=== PATIENT | male | born 1985 | race Caucasian/White ===

== ENCOUNTER 2016-06-28 20:16 | Emergency (ER) | payer OTHER ==
--- NOTE | 2016-06-28 22:09 | DIAGNOSTIC IMAGING REPORT ---
PROCEDURE: XR CHEST 2 VIEW INDICATION: CHEST PAIN, initial encounter TECHNIQUE: PA and lateral view. COMPARISON: None. FINDINGS: Lungs are clear. Cardiovascular structures are normal. Bony thorax is unremarkable. IMPRESSION: 1. Negative chest.
--- NOTE | 2016-06-29 | DIAGNOSTIC IMAGING REPORT ---
PROCEDURE: CTA THORAX WITH CONTRAST INDICATION: CP, SOB, H/O PE TECHNIQUE: 95 ml of Isovue 370 was injected intravenously and axial images were obtained of the entire thorax with 3D sagittal and coronal MIP reconstructions. COMPARISON: Chest x-ray 06/28/2016 FINDINGS: No evidence of pulmonary emboli. No aortic dissection or aneurysm. No adenopathy or effusion. Lungs are clear. Heart size is normal. Visualized abdomen are unremarkable. No suspicious osseous lesions. IMPRESSION: 1. No evidence of pulmonary emboli 2. Results discussed with Dr. Clark
--- NOTE | 2016-06-29 00:15 | ED CLINICAL REPORT ---
Clinical Report - Physicians/Mid Levels [facility] [address] [place] [address] 06/28/2016 20:17 Patient: ROCKY WEINBERG Time Seen: 20:55. Arrived- By private vehicle. Historian- patient. HISTORY OF PRESENT ILLNESS Chief Complaint: CHEST PAIN and DISCOMFORT. At its maximum, severity described as moderate. When seen in the E.D., severity described as moderate. This started about 3 weeks ago and is still present. It is described as sharp and "pain" and it is described as located in the left chest area. No nausea, vomiting or diaphoresis. He has had difficulty breathing (Hurts to take a deep breath.). Similar symptoms previously: None. Recent medical care: Not recently seen/assessed. REVIEW OF SYSTEMS No fever, chills, cough, pedal edema or calf pain. No fainting episodes, headache, sore throat, blurred vision or abdominal pain. No black stools, difficulty with urination, skin rash, enlarged lymph nodes or joint pain. No bloody stools. All systems otherwise negative, except as recorded above. PAST HISTORY Problems: Pancreatitis. Diabetes Mellitus. Anxiety Reaction. DVT's x 2. Additional Surgeries: Pilonidal Cyst. Shoulder Surgery. Medications: Coumadin Oral (stopped three weeks ago). Allergies: Penicillins. Definite Moderate(hives). SOCIAL HISTORY Former smoker, end date 2006. History of drug use: marijuana. No alcohol use. ADDITIONAL NOTES The nursing notes have been reviewed. PHYSICAL EXAM Vital Signs: 06/28/2016 20:21 BP: 133/87. HR: 84. RR: 22. O2 saturation: 97%. Temp: 99.2 F. Pain level now: 5/10. Have been reviewed. Appearance: Alert. Oriented X3. Patient in mild distress. Distress appears due to anxiety but not due to respiratory difficulty. Eyes: Pupils equal, round and reactive to light. Eyes normal inspection. ENT: Nose normal. Neck: Normal inspection. CVS: Normal heart rate and rhythm. Heart sounds normal. Pulses normal. Respiratory: No respiratory distress. Breath sounds normal. Abdomen: Soft and nontender. Back: Normal external inspection. No CVA tenderness. Skin: Skin warm and dry. Normal skin color. No rash. Normal skin turgor. Extremities: Extremities exhibit normal ROM. No lower extremity edema. Neuro: Oriented X 3. No motor deficit. No sensory deficit. LABS, X-RAYS, AND EKG EKG: EKG time: (2023). No acute ischemia. Normal sinus rhythm. Rate: 73. Normal P waves. Normal SHANNAN. RBBB. Normal axis. Normal ST and T waves, QT and QTc. Prior EKG unavailable. The study has been interpreted contemporaneously by me. The study has been independently viewed by me. The EKG appears to be a good tracing. I agree with and confirm the computer reading of the EKG. Rhythm Strip #1: Time: (2020). Rate= 71. Normal sinus rhythm. Regular rhythm. Narrow QRS complexes. No ectopy. Conduction normal. Normal ST segments and T waves. The study was interpreted by me. Chest X-ray: No acute disease. Normal lung markings present. Normal heart size. Mediastinum normal. Great vessels normal. Soft tissues normal. No infiltrate. No fracture. No bony lesion present. Views: PA and lateral. Technique: good. The X-rays were independently viewed by me, interpreted by the radiologist and contemporaneously by me and discussed with the radiologist. Prior films were not available for comparison. Chest CT: Lungs normal. Great vessels normal. Mediastinum normal. No fractures noted. Chest CT performed with contrast. The study was independently viewed by me, interpreted by the radiologist and contemporaneously by me and discussed with the radiologist. Prior studies were not available for comparison. Laboratory Tests: CBC w Diff: (PRIMITIVO: 06/28/2016 20:40) ( MsgRcvd 06/28/2016 21:32) Final results Test Result Flag Units (Reference) WHITE BLOOD COUNT 9.8 K/uL (4.5-11.5) RED BLOOD COUNT 5.58 M/uL (4.50-5.90) HEMOGLOBIN 16.0 gm/dL (13.5-17.5) HEMATOCRIT 47.5 % (41.0-53.0) MEAN CELL VOLUME 85 fL (80-100) MEAN CORPUSCULAR HGB 29 pg (26-34) MEAN CORPUSCULAR HGB CONC 34 g/dL (31-37) RED CELL DISTRIBUTION WIDTH 13.5 % (11.6-14.8) PLATELET COUNT 310 K/uL (150-400) NEUTROPHIL % 61.1 % (50-75) LYMPH % 28.5 % (25-40) MONO % 9.0 % (3-14) EOSINOPHIL % 0.9 % (0-4) BASOPHIL % 0.5 % (0-2) [id number]: (PRIMITIVO: 06/28/2016 20:40) ( MsgRcvd 06/28/2016 21:24) Final results Test Result Flag Units (Reference) D-DIMER QUANTITATIVE 0.27 ug/mLFEU (0.27-0.52) The primary value of this quantitative assay relates toits negative predictive value (i.e. exclusion) of pulmonaryembolism/deep vein thrombosis/DIC.Elevated levels of d-dimer may also occur with:, age, cancer, inflammation, liver disease,post-op, infection, hematoma, coronary disease, peripheralarteriopathy, bleeding disorders and thrombolytic treatment.Results should be correlated with other clinical andradiological data.Testing Methodology: Latex Immunoassay CHEM 13 PANEL: (PRIMITIVO: 06/28/2016 20:40) ( NygRcvd 06/28/2016 22:05) Final results Test Result Flag Units (Reference) GLUCOSE 92 mg/dL (70-110) BUN 15 mg/dL (7-18) CREATININE 1.1 mg/dL (0.6-1.3) Estimated GFR >60 mL/min Estimated GFR- >60 mL/min Note: Persistent reduction over 3 months in eGFR<60 mL/min/1.73 m2 defines CKD. Patients with eGFR values>=60 mL/min/1.73 m2 may also have CKD if evidence ofpersistent proteinuria. Additional information may be foundat [email or web address].org. SODIUM 139 mmol/L (136-145) POTASSIUM 3.5 mmol/L (3.5-5.1) CHLORIDE 104 mmol/L (98-107) CARBON DIOXIDE 23 mmol/L (21-32) CALCIUM 8.9 mg/dL (8.5-10.1) TOTAL PROTEIN 7.8 g/dL (6.4-8.2) ALBUMIN 4.1 g/dL (3.3-5.0) BILIRUBIN, TOTAL 0.6 mg/dL (0.0-1.0) ALKALINE PHOSPHATASE 47 U/L (46-116) AST (SGOT) 32 U/L (15-37) ALT (SGPT) 50 U/L (12-78) CPK 518 H U/L (24-260) MAGNESIUM 2.4 mg/dL (1.8-2.4) CK-MB 1.4 ng/mL (0.5-3.2) %CKMB 0.3 % (0.0-4.0) TROPONIN I <0.05 L ng/mL (0.00-1.5) TROPONIN REFERENCE RANGE:<0.1 NEGATIVE0.1-1.5 INDETERMINANT>1.5 POSITIVE . Pulse Oximetry: 06/28/2016 20:21 O2 saturation: 97%. (FIO2 - room air). Interpretation: normal. PROGRESS AND PROCEDURES Course of Care: Pt was given IV Dilaudid, Toradol, Zofran, and Ativan for symptomatic relief. He was worked up with labs, CXR, EKG, and CTA, with unremarkable results. No emergent condition was identified. Patient counseled in person regarding the patient's stable condition, test results, diagnosis and need for follow-up. Concerns were addressed. Old medical records reviewed. Disposition: Discharged. Condition: stable and improved. CLINICAL IMPRESSION Chest pain, with painful respirations. INSTRUCTIONS (All of your tests looked very good. There is no sign of any emergent or serious condition causing your pain. No evidence of a heart attack, blood clot, aneurysm, infection, tumor or pneumothorax. Your pain is most likely caused by spasm of the rows of muscle between your ribs, causing inflammation of the muscle connections and anxiety.). Warnings: GENERAL WARNINGS: Return or contact your physician immediately if your condition worsens or changes unexpectedly, if not improving as expected, or if other problems arise. Your Current Medications: CONTINUE TAKING THE FOLLOWING MEDICATIONS: Coumadin Oral : stopped three weeks ago. Prescription Medications: Hydrocodone/APAP 5mg / 325mg: take 1-2 orally every 6 hours as needed for pain. Dispense fifteen (15). No refill. Follow-up: Follow up with your doctor. Call for the next available appointment. Reason for referral: Establish care and discuss further treatment of the residual blood clot in your leg. Understanding of the discharge instructions verbalized by patient and family. (Electronically signed by Bebe Clark MD 06/30/2016 2:11)
--- NOTE | 2016-06-29 00:16 | ED ORDER SUMMARY ---
..... Patient: ROCKY WEINBERG OrderSheet [facility] VisitID: [id number] [place] [address] 31y, M Registration Date/Time: 06/28/2016 ORDER SHEET Weight: 107.5 kg (stated) Allergies: Penicillins GENERAL ORDERS: Rehab Aid (Continuous) (Chest Pain) (20:37 06/28/2016 JRomandurga R.N. verbal order read back to Terry MG) (20:39 JRomanelli R.N.) Oxygen (2 L/min) (NC) (20:38 06/28/2016 JRomanelli R.N. verbal order read back to Terry MG) (20:39 JRomanelli R.N.) Pulse oximeter (20:38 06/28/2016 JRomanelli R.N. verbal order read back to Terry MG) (20:39 JRomanelli R.N.) EKG - ER Stat (20:38 06/28/2016 JRomanelli R.N. verbal order read back to Terry MG) (20:39 JRomanelli R.N.) Cardiac Panel Stat (20:40 06/28/2016 JRomanelli R.N. verbal order read back to Terry MG) (Ack 20:41 CHagelizabeth ER Labor Relations Specialist) (21:27 JRomanelli R.N.) D-Dimer Urgent (20:41 06/28/2016 JRomanelli R.N. verbal order read back to Terry MG) (Ack 20:41 CHagelizabeth ER Labor Relations Specialist) (21:27 JRomanelli R.N.) UA-Culture if indicated Urgent (20:42 06/28/2016 JRomanelli R.N. verbal order read back to Terry MG) (Ack 20:43 CHagelizabeth ER Labor Relations Specialist) (23:58 JQuivey R.N.) Chest 2V Urgent (21:24 06/28/2016 Norm MG) (Ack 21:26 CHagerty ER Labor Relations Specialist) (21:43 CHagerty ER Labor Relations Specialist) CTA Thorax w Cont (No) (N/A) Urgent (22:48 06/28/2016 Norm MG) (Ack 22:52 CHagerty ER Labor Relations Specialist) (23:24 RFay) MEDICATION ORDERS: IV FLUIDS: IV Saline Lock (20:38 06/28/2016 Horacio R.N. verbal order read back to Terry MG) (20:39 Jayelli R.N.) Dilaudid IV 1 mg (HIGH ALERT MEDICATION, NOW) (21:25 06/28/2016 Norm MG) (21:46 omanelli R.N.) Toradol IV 30 mg (NOW) (21:06/28/2016 Norm MG) (21:47 omandurga R.N.) Ativan IV 1 mg (HIGH ALERT MEDICATION, NOW) (21:06/28/2016 Norm MG) (21:49 Horacio R.N.) Zofran IV 4 mg (NOW) (21:06/28/2016 Norm MG) (21:48 omandurga R.N.) Zofran IV 4 mg (NOW) (23:26 06/28/2016 Norm MG) (Ack 23:45 JQuivey R.N.) (23:52 JQuivey R.N.) Morphine IV 10 mg (HIGH ALERT MEDICATION, NOW) (00:26 06/29/2016 Norm MG) (Ack 0:29 JQuivey R.N.) (0:36 JQuivey R.N.) ORDER SHEET NOTES: [Electronically signed by Shaan Dial R.N. (01:03 06/29/2016)] [Electronically signed by Bebe Clark MD (02:11 06/30/2016)] [Electronically locked/signed by Shaan Dial R.N. (01:03 06/29/2016)]
--- NOTE | 2016-06-29 00:16 | ED ORDER SUMMARY ---
..... Patient: ROCKY WEINBERG OrderSheet [facility] VisitID: [id number] [place] [address] 31y, M Registration Date/Time: 06/28/2016 ORDER SHEET Weight: 107.5 kg (stated) Allergies: Penicillins GENERAL ORDERS: Sap Manager (Continuous) (Chest Pain) (20:37 06/28/2016 JRomandurga R.N. verbal order read back to Terry MG) (20:39 JRomanelli R.N.) Oxygen (2 L/min) (NC) (20:38 06/28/2016 JRomanelli R.N. verbal order read back to Terry MG) (20:39 JRomanelli R.N.) Pulse oximeter (20:38 06/28/2016 JRomanelli R.N. verbal order read back to Terry MG) (20:39 JRomanelli R.N.) EKG - ER Stat (20:38 06/28/2016 JRomanelli R.N. verbal order read back to Terry MG) (20:39 JRomanelli R.N.) Cardiac Panel Stat (20:40 06/28/2016 JRomanelli R.N. verbal order read back to Terry MG) (Ack 20:41 CHagelizabeth ER Design Inserter) (21:27 JRomanelli R.N.) D-Dimer Urgent (20:41 06/28/2016 JRomanelli R.N. verbal order read back to Terry MG) (Ack 20:41 CHagelizabeth ER Design Inserter) (21:27 JRomanelli R.N.) UA-Culture if indicated Urgent (20:42 06/28/2016 JRomanelli R.N. verbal order read back to Terry MG) (Ack 20:43 CHagelizabeth ER Design Inserter) (23:58 JQuivey R.N.) Chest 2V Urgent (21:24 06/28/2016 Norm MG) (Ack 21:26 CHagerty ER Design Inserter) (21:43 CHagerty ER Design Inserter) CTA Thorax w Cont (No) (N/A) Urgent (22:48 06/28/2016 Norm MG) (Ack 22:52 CHagerty ER Design Inserter) (23:24 RFay) MEDICATION ORDERS: IV FLUIDS: IV Saline Lock (20:38 06/28/2016 Horacio R.N. verbal order read back to Terry MG) (20:39 Jayelli R.N.) Dilaudid IV 1 mg (HIGH ALERT MEDICATION, NOW) (21:25 06/28/2016 Nrom MG) (21:46 omanelli R.N.) Toradol IV 30 mg (NOW) (21:06/28/2016 Norm MG) (21:47 omandurga R.N.) Ativan IV 1 mg (HIGH ALERT MEDICATION, NOW) (21:06/28/2016 Norm MG) (21:49 Horacio R.N.) Zofran IV 4 mg (NOW) (21:06/28/2016 Norm MG) (21:48 omandurga R.N.) Zofran IV 4 mg (NOW) (23:26 06/28/2016 Norm MG) (Ack 23:45 JQuivey R.N.) (23:52 JQuivey R.N.) Morphine IV 10 mg (HIGH ALERT MEDICATION, NOW) (00:26 06/29/2016 Norm MG) (Ack 0:29 JQuivey R.N.) (0:36 JQuivey R.N.) ORDER SHEET NOTES: [Electronically signed by Shaan Dial R.N. (01:03 06/29/2016)] [Electronically signed by Bebe Clark MD (02:11 06/30/2016)] [Electronically locked/signed by Shaan Dial R.N. (01:03 06/29/2016)]
--- NOTE | 2016-06-29 00:16 | ED NURSING NOTES ---
Clinical Report - Nurses [facility] [address] [place] [address] 06/28/2016 20:17 Patient: ROCKY WEINBERG TRIAGE Triage time 20:Jun 28 2016. Acuity: LEVEL 3. Chief Complaint: CHEST PAIN. Alert. GAURI COMA SCORE: [place] Coma Scale: 15- eyes open spontaneously (4); best verbal response- oriented x 4 (5); best motor response- obeys commands (6). --20:34 Shaan Castañeda R.N. 20:21 06/28/16. BP: 133/87. HR: 84. RR: 22. O2 saturation: 97% on room air. Temp: 99.2 F. Pain level now: 5/10. Additional comments: (L) Chest Pain. --20:34 Shaan Castañeda R.N. Weight: 107.5 kg stated. Height/Length: 68 inches Per Patient. BMI: 36. --20:26 Shaan Castañeda R.N. Medications Coumadin Oral (stopped three weeks ago). --20:24 Shaan Castañeda R.N. Allergies Penicillins. Definite Moderate(hives) --20:25 Shaan Castañeda R.N. Medication/allergy information source: the patient. --20:34 Shaan Castañeda R.N. History Arrived by private vehicle. Historian: patient. Accompanied by friend and mother. ( Chest Pain located on (L). Gets the pain in his chest and it gets so bad that he gets dizzy and feels as though he is going to pass out.). Onset. (about 3 weeks ago). He has had difficulty breathing and nausea. ( Dizzy, "feels like I'm drunk."). Treatment POPULATION HEALTH MANAGER: None. PAST MEDICAL HX: Immunizations: up-to-date. SOCIAL HX: Former smoker, end date 2006. History of drug use: marijuana. FALL RISK ASSESSMENT: Fall risk assessment completed. No fall risk identified. NUTRITIONAL RISK ASSESSMENT: The nutritional risk assessment revealed no deficiencies. FUNCTIONAL ASSESSMENT: Functional assessment: no impairments noted. LEARNING NEEDS ASSESSMENT: The learning needs assessment revealed no barriers. SKIN INTEGRITY ASSESSMENT: Skin integrity risk assessment completed. No skin integrity risk identified. --20:34 Shaan Castañeda R.N. PROBLEMS: Anxiety Reaction. DVT's x 2. Electrocuted at work. --20:31 Shaan Castañeda R.N. Pancreatitis. Diabetes Mellitus. --20:32 Shaan Castañeda R.N. ADDITIONAL SURGERIES: Pilonidal Cyst. Shoulder Surgery. --20:31 Shaan Castañeda R.N. Interventions ID band on patient. To treatment room. --20:34 Shaan Castañeda R.N. PHYSICAL ASSESSMENT Ambulatory to room. GENERAL / NEURO / PSYCH: Alert. Oriented X 4. HEENT: Mucous membranes are pink. RESPIRATORY: Respirations not labored. CVS: Normal sinus rhythm noted. EXTREMITIES: No lower extremity edema. SKIN: Skin is warm and dry. Normal skin turgor. --20:36 Shaan Castañeda R.N. NURSING PROGRESS NOTES Patient gowned. Reassurance given to the patient. Patient identifiers checked. Call light placed in reach. Side rails up x 1. Bed placed in lowest position. Brakes of bed on. Patient ready for evaluation- chart flagged and ED physician notified. --20:37 Shaan Castañeda R.N. 20:39 06/28/2016 Site #1 started via IV in the left antecubital space with an 18g angiocath, with aseptic technique and good blood return; one attempt. Blood drawn: rainbow set. Labeled in the presence of the patient and sent to the lab. Saline lock flushed with 10 mL saline (start by Shaan Dial RN). --20:39 Shaan Castañeda R.N. EKG time: (2023). EKG was ordered, performed by a tech and shown to the ED physician. --20:41 Aguilar Finn ER As400 Consultant 21:35 06/28/2016 Dilaudid (HYDROmorphone HCl PF) IVP 1 mg given over 2 minute(s) via site #1. Allergies verified, confirmed 5 rights and sedative warning given. IV patency established. IV site checked: no pain, redness, or swelling. IV flushed thoroughly pre- and post-medication administration. IVP given by RN. --21:46 Shaan Castañeda R.N. 21:37 06/28/2016 Toradol IVP 30 mg given over 2 minute(s) via site #1. Allergies verified and confirmed 5 rights. IV patency established. IV site checked: no pain, redness, or swelling. IV flushed thoroughly pre- and post-medication administration. IVP given by RN. --21:47 Shaan Castañeda R.N. 21:39 06/28/2016 Zofran (Ondansetron HCl) IVP 4 mg given over 2 minute(s) via site #1. Allergies verified and confirmed 5 rights. IV patency established. IV site checked: no pain, redness, or swelling. IV flushed thoroughly pre- and post-medication administration. IVP given by RN. --21:48 Shaan Castañeda R.N. 21:43 06/28/2016 Ativan (LORazepam) IVP 1 mg given over 3 minute(s) via site #1. Allergies verified, confirmed 5 rights and sedative warning given to the patient. IV patency established. IV site checked: no pain, redness, or swelling. IV flushed thoroughly pre- and post-medication administration. IVP given by RN (Diluted in NS 10 mL). --21:49 Shaan Castañeda R.N. 21:00 06/28/16. BP: 151/95. HR: 77. RR: 15. O2 saturation: 98%. Pain level now: 2/10. --22:53 Shaan Castañeda R.N. 22:53 06/28/16. BP: 148/71. HR: 76. RR: 16. O2 saturation: 98%. --22:55 Shaan Castañeda R.N. 23:46 06/28/2016 Zofran (Ondansetron HCl) IVP 4 mg given over 2 minute(s) via site #1. Allergies verified and confirmed 5 rights. IV patency established. IV site checked: no pain, redness, or swelling. IV flushed thoroughly pre- and post-medication administration. --23:52 Shaan Dial R.N. 23:52 Patient assisted to restroom to provide urine sample. --23:52 Shaan Dial R.N. 23:54. Patient ID band checked for patient name and birthdate: patient confirmed. Clean catch urine collected with return of yellow-colored jerry-colored clear urine; sample sent to lab for urinalysis. Specimen labeled in the presence of the patient. --23:58 Shaan Dial R.N. 00:31 06/29/2016 Morphine IVP 10 mg given over 2 minute(s) via site #1. Allergies verified, confirmed 5 rights and sedative warning given to the patient and patient's family. --00:36 Shaan Dial R.N. 00:33. The patient is calm and resting quietly. RESPIRATORY: No respiratory distress. SKIN: Skin is warm and dry. Skin color within normal limits. --00:37 Shaan Dial R.N. DISPOSITION / DISCHARGE 00:31 06/29/2016 Site #1 removed upon discharge. Catheter intact. Bandage applied. --00:35 Shaan Dial R.N. Departure time: 00:35. Condition at departure: stable. No learning barriers present. Discharge instructions provided and reviewed with the patient. Reviewed medication(s) side effects, precautions, dosing and course information. Prescription(s) given to the patient. Patient verbalized understanding. Written instructions provided in Kazakh. The patient was discharged home and accompanied by family. He left the Emergency Department ambulatory and via private vehicle. FALL RISK ASSESSMENT: Fall risk assessment completed. No fall risk identified. --00:35 Shaan Dial R.N. 00:19 06/29/16. BP: 131/81. HR: 70. RR: 12. O2 saturation: 98% on room air. Pain level now: 06/06. --00:35 Shaan Dial R.N. Locked/Released at 06/29/2016 1:03 by Shaan Dial R.N.
--- NOTE | 2016-06-30 02:11 | ED MAR SUMMARY ---
..... Medication Administration Record [facility] [address] [place] [address] Patient: ROCKY WEINBERG Visit ID: [id number] 31y, M Weight: 107.5 kg Height/Length: 68 in BMI: 36 ALLERGIES: Penicillins Given 21:35 06/28/2016 Shaan Castañeda R.N. Medication Administered: DILAUDID [IVP] (HYDROMORPHONE HCL PF), Dose: 1 mg IVP over 2 minute(s), Site: #1 left AC. Medication Ordered: Dilaudid IV 1 mg (HIGH ALERT MEDICATION, NOW). Given 21:37 06/28/2016 Shaan Castañeda R.N. Medication Administered: TORADOL [IVP], Dose: 30 mg IVP over 2 minute(s), Site: #1 left AC. Medication Ordered: Toradol IV 30 mg (NOW). Given 21:39 06/28/2016 Shaan Castañeda R.N. Medication Administered: ZOFRAN [IVP] (ONDANSETRON HCL), Dose: 4 mg IVP over 2 minute(s), Site: #1 left AC. Medication Ordered: Zofran IV 4 mg (NOW). Given 21:43 06/28/2016 Shaan Castañeda R.N. Medication Administered: ATIVAN [IVP] (LORAZEPAM), Dose: 1 mg IVP over 3 minute(s), Site: #1 left AC. Medication Ordered: Ativan IV 1 mg (HIGH ALERT MEDICATION, NOW). Given 23:46 06/28/2016 Shaan Dial R.N. Medication Administered: ZOFRAN [IVP] (ONDANSETRON HCL), Dose: 4 mg IVP over 2 minute(s), Site: #1 left AC. Medication Ordered: Zofran IV 4 mg (NOW). Given 00:31 06/29/2016 Shaan Dial R.N. Medication Administered: MORPHINE [IVP], Dose: 10 mg IVP over 2 minute(s), Site: #1. Medication Ordered: Morphine IV 10 mg (HIGH ALERT MEDICATION, NOW).
--- NOTE | 2016-06-30 02:11 | ED MAR SUMMARY ---
..... Medication Administration Record [facility] [address] [place] [address] Patient: ROCKY WEINBERG Visit ID: [id number] 31y, M Weight: 107.5 kg Height/Length: 68 in BMI: 36 ALLERGIES: Penicillins Given 21:35 06/28/2016 Shaan Castañeda R.N. Medication Administered: DILAUDID [IVP] (HYDROMORPHONE HCL PF), Dose: 1 mg IVP over 2 minute(s), Site: #1 left AC. Medication Ordered: Dilaudid IV 1 mg (HIGH ALERT MEDICATION, NOW). Given 21:37 06/28/2016 Shaan Castañeda R.N. Medication Administered: TORADOL [IVP], Dose: 30 mg IVP over 2 minute(s), Site: #1 left AC. Medication Ordered: Toradol IV 30 mg (NOW). Given 21:39 06/28/2016 Shaan Castañeda R.N. Medication Administered: ZOFRAN [IVP] (ONDANSETRON HCL), Dose: 4 mg IVP over 2 minute(s), Site: #1 left AC. Medication Ordered: Zofran IV 4 mg (NOW). Given 21:43 06/28/2016 Shaan Castañeda R.N. Medication Administered: ATIVAN [IVP] (LORAZEPAM), Dose: 1 mg IVP over 3 minute(s), Site: #1 left AC. Medication Ordered: Ativan IV 1 mg (HIGH ALERT MEDICATION, NOW). Given 23:46 06/28/2016 Shaan Dial R.N. Medication Administered: ZOFRAN [IVP] (ONDANSETRON HCL), Dose: 4 mg IVP over 2 minute(s), Site: #1 left AC. Medication Ordered: Zofran IV 4 mg (NOW). Given 00:31 06/29/2016 Shaan Dial R.N. Medication Administered: MORPHINE [IVP], Dose: 10 mg IVP over 2 minute(s), Site: #1. Medication Ordered: Morphine IV 10 mg (HIGH ALERT MEDICATION, NOW).
--- NOTE | 2016-06-30 02:11 | ED MED RECONCILIATION SUMMARY ---
Patient: ROCKY WEINBERG Medication Reconciliation Report [facility] VisitID: [id number] [address] [place] [address] 31y, M Registration Date/Time: 06/28/2016 Weight: 107.5 kg Height/Length: 68 in. BMI: 36.0 ALLERGIES: Penicillins The patient's Home Medications are listed below: CONTINUE TAKING THE FOLLOWING MEDICATIONS: Coumadin Oral, stopped three weeks ago The source(s) of the original Home Medication information: patient The following Medications were given to the patient in the Emergency Department: Dilaudid [IVP] IVP 1 mg, administered: 06/28/2016 9:35:00 PM Toradol [IVP] IVP 30 mg, administered: 06/28/2016 9:37:00 PM Zofran [IVP] IVP 4 mg, administered: 06/28/2016 9:39:00 PM Ativan [IVP] IVP 1 mg, administered: 06/28/2016 9:43:00 PM Zofran [IVP] IVP 4 mg, administered: 06/28/2016 11:46:00 PM Morphine [IVP] IVP 10 mg, administered: 06/29/2016 12:31:00 AM The following Medications were prescribed to the patient: Hydrocodone/APAP 5mg / 325mg: take 1-2 orally every 6 hours as needed for pain. Dispense fifteen (15). No refill. -- Bebe Clark MD
--- NOTE | 2016-06-30 02:11 | ED DISCHARGE INSTRUCTIONS ---
Patient: ROCKY WEINBERG General Instructions [facility] VisitID: [id number] [place] [address] 31y, M Registration Date/Time: 06/28/2016 Chest pain, with painful respirations. INSTRUCTIONS (All of your tests looked very good. There is no sign of any emergent or serious condition causing your pain. No evidence of a heart attack, blood clot, aneurysm, infection, tumor or pneumothorax. Your pain is most likely caused by spasm of the rows of muscle between your ribs, causing inflammation of the muscle connections and anxiety.). Warnings: GENERAL WARNINGS: Return or contact your physician immediately if your condition worsens or changes unexpectedly, if not improving as expected, or if other problems arise. Your Current Medications: CONTINUE TAKING THE FOLLOWING MEDICATIONS: Coumadin Oral : stopped three weeks ago. Prescription Medications: Hydrocodone/APAP 5mg / 325mg: take 1-2 orally every 6 hours as needed for pain. Dispense fifteen (15). No refill. Follow-up: Follow up with your doctor. Call for the next available appointment. Reason for referral: Establish care and discuss further treatment of the residual blood clot in your leg. Understanding of the discharge instructions verbalized by patient and family. ADDITIONAL INFORMATION Chest Pain, Noncardiac Based on your visit today, the exact cause of your chest pain is not certain. Your condition does not seem serious and your pain does not appear to be coming from your heart. However, sometimes the signs of a serious problem take more time to appear. Therefore, please watch for the warning signs listed below. Home Care: Rest today and avoid strenuous activity. Take any prescribed medicine as directed. Follow Up with your doctor or this facility as instructed or if you do not start to feel better within 24 hours. Get Prompt Medical Attention if any of the following occur: A change in the type of pain: if it feels different, becomes more severe, lasts longer, or begins to spread into your shoulder, arm, neck, jaw or back Shortness of breath or increased pain with breathing Cough with dark colored sputum (phlegm) or blood Weakness, dizziness, or fainting Fever of 100.4F (38C) or higher, or as directed by your healthcare provider Swelling, pain or redness in one leg You have been given the following additional information: Chest Pain, Noncardiac (Electronically signed by Bebe Clark MD 06/30/2016 2:11)
--- NOTE | 2016-06-30 02:11 | ED MED RECONCILIATION SUMMARY ---
Patient: ROCKY WEINBERG Medication Reconciliation Report [facility] VisitID: [id number] [address] [place] [address] 31y, M Registration Date/Time: 06/28/2016 Weight: 107.5 kg Height/Length: 68 in. BMI: 36.0 ALLERGIES: Penicillins The patient's Home Medications are listed below: CONTINUE TAKING THE FOLLOWING MEDICATIONS: Coumadin Oral, stopped three weeks ago The source(s) of the original Home Medication information: patient The following Medications were given to the patient in the Emergency Department: Dilaudid [IVP] IVP 1 mg, administered: 06/28/2016 9:35:00 PM Toradol [IVP] IVP 30 mg, administered: 06/28/2016 9:37:00 PM Zofran [IVP] IVP 4 mg, administered: 06/28/2016 9:39:00 PM Ativan [IVP] IVP 1 mg, administered: 06/28/2016 9:43:00 PM Zofran [IVP] IVP 4 mg, administered: 06/28/2016 11:46:00 PM Morphine [IVP] IVP 10 mg, administered: 06/29/2016 12:31:00 AM The following Medications were prescribed to the patient: Hydrocodone/APAP 5mg / 325mg: take 1-2 orally every 6 hours as needed for pain. Dispense fifteen (15). No refill. -- Bebe Clark MD
== END 2016-06-29 00:35 | disposition home or self-care (01) ==
LOC: ED SRH 20:16
DX: R07.1 Chest pain on breathing (principal); E11.9 Type 2 diabetes mellitus without complications; Z86.718 Personal history of other venous thrombosis and embolism; Z79.01 Long term (current) use of anticoagulants; Z88.0 Allergy status to penicillin
CPT/HCPCS: 90004; 90100; 90616; 90617; 91556; 92610; 92720; 95059